=== PATIENT | male | born 1990 | race African-American/Black ===

== ENCOUNTER 2019-04-15 15:08 | Inpatient (IN) | payer OTHER ==
--- NOTE | 2019-04-15 15:53 | PDOC ---
History of Present Illness - General Chief Complaint: Abnormal Lab Results (Outside) Stated Complaint: PAIN History Source: Patient Exam Limitations: No Limitations - History of Present Illness Initial Comments: 29 yo M with a hx of HTN presents to the emergency department with abnormal lab values. Per the patient, he was in a hospital located in [facility] where he was admitted to the ICU for rhabdo with ARF requiring HD. Per the patient, he states he had URI symptoms in January with subsequent development of global weakness. He subsequently developed rhabdo and was admitted to the ICU with ARF with HD. The patient was discharged to rehab at [facility] and was discharged within the past 3-4 weeks. The patient over the course of 3 days developed acute on chronic global weakness with difficulty ambulating (using a cane to ambulate since rehabilitation discharge). The patient denies pain. Denies substance abuse. He was prescribed 20 mg of prednisone but is not taking it. Past History - Past Medical History Allergies/Adverse Reactions: Allergies Allergy/AdvReac Type Severity Reaction Status Date / Time No Known Allergies Allergy Verified 04/15/19 16:16 Home Medications: Ambulatory Orders Acetaminophen [Acetaminophen ER] 650 mg PO DAILY 04/15/19 Famotidine 20 mg PO DAILY 04/15/19 Hydrocodone/Acetaminophen [Hydrocodon-Acetaminophn 10-325] 1 each PO Q6H Magnesium Oxide 400 mg PO DAILY 04/15/19 Nifedipine [Nifedipine ER] 90 mg PO DAILY 04/15/19 Potassium Chloride [Klor-Con M20] 20 meq PO DAILY 04/15/19 Vitamin B Complex 1 each PO DAILY 04/15/19 predniSONE [Deltasone -] 20 mg PO DAILY 04/15/19 - Psycho Social/Smoking Cessation Hx Smoking History: Never smoked Hx Alcohol Use: No Drug/Substance Use Hx: No Review of Systems - Review of Systems Able to Perform ROS?: Yes Is the patient limited Portuguese proficient: No Constitutional: Yes: Weakness. No: Chills, Diaphoresis, Fever HEENTM: No: Eye Pain, Ear Pain, Nose Pain, Throat Pain, Mouth Pain Respiratory: No: Cough, Shortness of Breath, Hemoptysis Cardiac (ROS): No: Chest Pain, Lightheadedness, Palpitations, Chest Tightness ABD/GI: No: Constipated, Diarrhea, Nausea, Rectal Bleeding, Vomiting, Tarry Stools : No: Burning, Dysuria, Hematuria Musculoskeletal: Yes: Muscle Weakness. No: Back Pain, Joint Pain, Muscle Pain, Neck Pain Integumentary: No: Bruising, Erythema, Rash Neurological: Yes: Unsteady Gait. No: Headache, Numbness, Tremors Psychiatric: No: Change in Appetite Endocrine: No: Unexplained Weight Loss Hematologic/Lymphatic: No: Anemia *Physical Exam - Vital Signs Last Vital Signs Temp Pulse Resp BP Pulse Ox 98.3 F 79 16 120/64 100 04/15/19 15:12 04/15/19 15:12 04/15/19 15:12 04/15/19 15:12 04/15/19 15:12 - Physical Exam General Appearance: Yes: Nourished, Appropriately Dressed. No: Apparent Distress, Intoxicated, Thin HEENT: positive: EOMI, ANA LAURA, Normal Voice, Symmetrical, Pharynx Normal, Hearing Grossly Normal. negative: Pale Conjunctivae, Scleral Icterus (R), Scleral Icterus (L), Muffled/Hoarse voice, Pharyngeal Erythema, Tonsillar Exudate, Tonsillar Erythema, Nasal Congestion, Rhinorrhea, Sinus Tenderness, Excessive drooling Neck: positive: Trachea midline, Supple. negative: Tender, Lymphadenopathy (R) , Lymphadenopathy (L), Tender lateral, Tender midline Respiratory/Chest: positive: Lungs Clear, Normal Breath Sounds. negative: Chest Tender, Respiratory Distress, Accessory Muscle Use Cardiovascular: positive: Regular Rhythm, Regular Rate, S1, S2. negative: Systolic Murmur Gastrointestinal/Abdominal: positive: Normal Bowel Sounds, Flat, Soft. negative : Tender Lymphatic: negative: Adenopathy Musculoskeletal: positive: Normal Inspection. negative: CVA Tenderness, Vertebral Tenderness Extremity: positive: Normal Capillary Refill, Normal Inspection, Normal Range of Motion. 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 able to walk in tandem). negative: Motor Strength 5/5 (4/5 strength b/l for UE and LE), EOM Palsy, Facial Droop, Numbness, Sensory Deficit , Confused, Disoriented Deep Tendon Reflexes: Knee (L): 4+, Knee (R): 4+, Bicep (L): 3+, Bicep (R): 3+, Tricep (L): 2+, Tricep (R): 2+ ED Treatment Course - LABORATORY CBC & Chemistry Diagram: 04/16/19 10:10 04/16/19 10:10 Medical Decision Making - Medical Decision Making 29 yo M with a hx of HTN presents to the emergency department with abnormal lab values. Initial vitals: Initial Vital Signs Temp Pulse Resp BP Pulse Ox 98.3 F 79 16 120/64 100 04/15/19 15:12 04/15/19 15:12 04/15/19 15:12 04/15/19 15:12 04/15/19 15:12 Work up: ddx: patient presents to the emergency department with muscle weakness and recent ICU admission for rhabdo requiring dialysis with rehabilitation. The patient was at [facility] in [place]. He was sent in by his PMD, Edward Zhang for elevated CK enzymes. The patient denies recent travels or recent new exercises from baseline. Endorses only working out at his usual levels. He was prescribed prednisone 20 mg for unknown reasons to the patient and the patient is not taking them. The patient was, per the patient, to receive a muscle biopsy but did not receive one. Will repeat CK levels. Laboratory Tests 04/15/19 04/15/19 04/15/19 15:54 15:54 15:54 WBC 4.7 RBC 4.09 Hgb 11.9 Hct 36.2 MCV 88.5 MCH 29.1 MCHC 32.9 RDW 13.1 Plt Count 271 MPV 9.3 Absolute Neuts (auto) 2.5 Neutrophils % 53.6 Lymphocytes % 33.5 Monocytes % 10.3 H Eosinophils % 1.9 Basophils % 0.7 Nucleated RBC % 0 Sodium 139 Potassium 4.6 Chloride 105 Carbon Dioxide 28 Anion Gap 6 L BUN 7.9 Creatinine 0.9 Est GFR (CKD-EPI)AfAm 134.24 Est GFR (CKD-EPI)NonAf 115.82 Random Glucose 96 Calcium 9.7 Magnesium 2.0 Total Bilirubin 0.2 AST 23 ALT 33 Alkaline Phosphatase 64 Creatine Kinase 625 H Troponin I < 0.02 Total Protein 7.6 Albumin 4.1 Urine Color Urine Appearance Urine pH Ur Specific [place] Urine Protein Urine Glucose (UA) Urine Ketones Urine Blood Urine Nitrite Urine Bilirubin Urine Urobilinogen Ur Leukocyte Esterase Urine WBC (Auto) Urine RBC (Auto) Urine Casts (Auto) U Epithel Cells (Auto) Urine Bacteria (Auto) 04/15/19 16:15 WBC RBC Hgb Hct MCV MCH MCHC RDW Plt Count MPV Absolute Neuts (auto) Neutrophils % Lymphocytes % Monocytes % Eosinophils % Basophils % Nucleated RBC % Sodium Potassium Chloride Carbon Dioxide Anion Gap BUN Creatinine Est GFR (CKD-EPI)AfAm Est GFR (CKD-EPI)NonAf Random Glucose Calcium Magnesium Total Bilirubin AST ALT Alkaline Phosphatase Creatine Kinase Troponin I Total Protein Albumin Urine Color Dk yellow Urine Appearance Clear Urine pH 5.0 Ur Specific [place] 1.024 Urine Protein 1+ H Urine Glucose (UA) Negative Urine Ketones Negative Urine Blood Negative Urine Nitrite Negative Urine Bilirubin Negative Urine Urobilinogen 1.0 Ur Leukocyte Esterase Negative Urine WBC (Auto) 3 Urine RBC (Auto) 3 Urine Casts (Auto) 19 U Epithel Cells (Auto) 2.1 Urine Bacteria (Auto) 1.9 CK is 625. Neurology was stat paged to Dr. Lujan's service at 5:44 pm. The patient has hyperreflexia with non sustained clonus of the LE with inability to walk on his toes. In addition, he has global 4/5 strength with increased muscle tone in the calf and triceps bilaterally. The patient has a negative babinski. These findings are concerning for spinal cord pathology vs intracranial pathologies. A call was placed to admitting service and was accepted for admission. the patient needs MRI to rule out transverse myelitis vs cauda equina vs conus medullaris. The trim technician was called. Per the trim technician, it was "impossible" to do a triple study of the spine with brain because he has numerous cases that are listed as stat from inpatient team. I relayed to the trim technician that this patient has concerning neurological findings with emergent need for studies. The tech continues to refuse because he will not be here long enough to do the studies. A call was placed to [facility]'s team for immediate consultation at 6 :03 pm. I spoke to Dr. Oneil from [facility] who stipulates that the patient may have a myopathy and will not require emergent MRI imaging and does not require emergent transfer. I relayed the conversation with the family and admitting team and the patient agrees to stay at [facility] for further evaluation. Patient was admitted for UMN findings in setting of recent rhabdo requiring HD. Discharge - Discharge Information Problems reviewed: Yes Clinical Impression/Diagnosis: Muscle weakness, Unsteady gait - Follow up/Referral - Patient Discharge Instructions - Post Discharge Activity
[2019-04-15 16:33] LABS: BASO % 0.7 % (0-2.0); EOS % 1.9 % (0-4.5); HEMATOCRIT 36.2 % (35.4-49); HEMOGLOBIN 11.9 GM/dL (11.7-16.9); LYMPH % 33.5 % (8-40); MCH 29.1 pg (25.7-33.7); MCHC 32.9 g/dl (32.0-35.9); MEAN CELL VOLUME 88.5 fl (80-96); MEAN PLT VOLUME 9.3 fl (7.5-11.1); MONO % 10.3 % (3.8-10.2); NEUT % 53.6 % (42.8-82.8); PLATELET COUNT 271 K/MM3 (134-434); RBC 4.09 M/mm3 (4.00-5.60); RDW 13.1 % (11.9-15.9); WHITE BLOOD COUNT 4.7 K/mm3 (4.0-10.0)
[2019-04-15 16:35] LABS: EPI CELLS 2.1 /HPF (0-5/HPF); HYALINE CASTS 19 /lpf (0-8); URINE APPEARANCE CLEAR; URINE BACTERIA 1.9 /hpf (NEGATIVE); URINE BILIRUBIN NEGATIVE (NEGATIVE); URINE COLOR DK YELLOW; URINE GLUCOSE (UA) NEGATIVE (NEGATIVE); URINE KETONE NEGATIVE (NEGATIVE); URINE LEUK ESTERASE NEGATIVE (NEGATIVE); URINE NITRITE NEGATIVE (NEGATIVE); URINE PROTEIN 1+ (NEGATIVE); URINE RBC 3 /hpf (0-4); URINE WBC 3 /hpf (0-5)
--- NOTE | 2019-04-15 16:40 | PDOC ---
Attending Attestation - Resident Resident Name: Lebron Malagon - ED Attending Attestation I have performed the following: I have examined & evaluated the patient, The case was reviewed & discussed with the resident, I agree w/resident's findings & plan
[2019-04-15 17:03] LABS: ALBUMIN 4.1 g/dl (3.4-5.0); ALK PHOS 64 U/L (45-117); ANION GAP 6 MMOL/L (8-16); BILIRUBIN,TOTAL 0.2 mg/dL (0.2-1); BLOOD UREA NITROGEN 7.9 mg/dL (7-18); CALCIUM 9.7 mg/dL (8.5-10.1); CHLORIDE 105 mmol/L (98-107); CO2 28 mmol/L (21-32); CREATININE 0.9 mg/dL (0.55-1.3); GLUCOSE,RANDOM 96 mg/dL (74-106); POTASSIUM 4.6 mmol/L (3.5-5.1); SGOT/AST 23 U/L (15-37); SGPT/ALT 33 U/L (13-61); SODIUM 139 mmol/L (136-145); TOT PROT 7.6 g/dl (6.4-8.2)
--- NOTE | 2019-04-15 17:45 | HP ---
CHIEF COMPLAINT: muscle weakness, sent by pcp for elevated cpk on routine labs PCP: HISTORY OF PRESENT ILLNESS: The patient is a 29 year old male with a past medical history significant for HTN (on three blood pressure medications), rhabdomylysis and renal failure requiring dialysis. Patient presents to the ED today with tingling to both hands, numbness, generalized body aches accompanied with generalized weakness with cramping and aching to both arms and legs. He also reports difficulty ambulating secondary to pain in feet and joints. He was reported to have an elevated CPK levels and was advised to go to the ED by this PCP. Patient was recently hospitalized on 01/26/2019 at [facility] in [place] where he was admitted to the ICU for rhabdo with ARF requiring HD secondary to influenza. He was hospitalized until March 18/2020 and during hospital stay required eight sessions of dialysis via right permacath. He was then discharged to rehab where he reported that he had difficulty with ambulating and required a cane. He had routine lab work done by his PCP an advised to come to the ED once his CPK levels were again elevated. Patient denies abdominal pain denies shortness of breath or visual loss, denies urinary frequency, hematuria, nausea/vomiting or diarrhea. Patient was discharged on Prednisone but states he does not know why he was discharged on predinosine but has stopped taking it. Last took it on March 18/2020. ER course was notable for: (1) cpk 625 (2) creatine kinase index 12.3, ck mk 77 (3) brain mri pending (4) bun within normal limits/creatinine within normal limits Recent Travel: PAST MEDICAL HISTORY: HTN (on three blood pressure medications), rhabdomylysis and renal failure requiring dialysis. PAST SURGICAL HISTORY: permacath Social History: Smoking: none Alcohol: none Drugs: none Allergies No Known Allergies Allergy (Verified 04/15/19 16:16) HOME MEDICATIONS: Home Medications Medication Instructions Recorded Acetaminophen [Acetaminophen ER] 650 mg PO DAILY 04/15/19 Famotidine 20 mg PO DAILY 04/15/19 Magnesium Oxide 400 mg PO DAILY 04/15/19 Nifedipine [Nifedipine ER] 90 mg PO DAILY 04/15/19 Potassium Chloride [Klor-Con M20] 20 meq PO DAILY 04/15/19 Vitamin B Complex 1 each PO DAILY 04/15/19 predniSONE [Deltasone -] 20 mg PO DAILY 04/15/19 REVIEW OF SYSTEMS CONSTITUTIONAL: Absent: fever, chills, diaphoresis, generalized weakness, malaise, loss of appetite, weight change HEENT: Absent: rhinorrhea, nasal congestion, throat pain, throat swelling, difficulty swallowing, mouth swelling, ear pain, eye pain, visual changes CARDIOVASCULAR: Absent: chest pain, syncope, palpitations, irregular heart rate, lightheadedness , peripheral edema RESPIRATORY: Absent: cough, shortness of breath, dyspnea with exertion, orthopnea, wheezing, stridor, hemoptysis GASTROINTESTINAL: Absent: abdominal pain, abdominal distension, nausea, vomiting, diarrhea, constipation, melena, hematochezia GENITOURINARY: Absent: dysuria, frequency, urgency, hesitancy, hematuria, flank pain, genital pain MUSCULOSKELETAL: Present: muscle weakness, upper arm, lower arms, knees and painful joints. SKIN: Absent: rash, itching, pallor HEMATOLOGIC/IMMUNOLOGIC: Absent: easy bleeding, easy bruising, lymphadenopathy, frequent infections ENDOCRINE: Absent: unexplained weight gain, unexplained weight loss, heat intolerance, cold intolerance NEUROLOGIC: Absent: headache, focal weakness or paresthesias, dizziness, PHYSICAL EXAMINATION Vital Signs - 24 hr 04/15/19 04/15/19 15:12 17:38 Temperature 98.3 F 98.0 F Pulse Rate 79 Pulse Rate [ 73 Apical] Respiratory 16 19 Rate Blood Pressure 120/64 Blood Pressure 125/67 [Right Arm] O2 Sat by Pulse 100 100 Oximetry (%) GENERAL: Awake, alert, and fully oriented, in no acute distress. HEAD: Normal with no signs of trauma. EYES: Pupils equal, round and reactive to light, extraocular movements intact, sclera anicteric, conjunctiva clear. No lid lag. EARS, NOSE, THROAT: Ears normal, nares patent, oropharynx clear without exudates. Moist mucous membranes. NECK: Normal range of motion, supple without lymphadenopathy, JVD, or masses. LUNGS: Breath sounds equal, clear to auscultation bilaterally. No wheezes, and no crackles. No accessory muscle use. HEART: Regular rate and rhythm, normal S1 and S2 without murmur, rub or gallop. ABDOMEN: Soft, nontender, not distended, normoactive bowel sounds, no guarding, no rebound, no masses. No hepatomegaly or splenomegaly. MUSCULOSKELETAL: muscle weakness of upper and lower arms, joint pain, difficulty ambulating secondary to ankle/knee pain. UPPER EXTREMITIES: No peripheral edema. LOWER EXTREMITIES: No peripheral edema. NEUROLOGICAL: Normal speech. ambulates with cane, unable to bear his weight fully on pads of feet. unable to walk on his toes, negative facial droop, patient is alert and oriented x 4. upper extremities strength 4/5, lower ext strength 4/5 PSYCHIATRIC: Cooperative. Good eye contact. Appropriate mood and affect. SKIN: Warm, dry, normal turgor, no rashes or lesions noted, normal capillary refill. Laboratory Results - last 24 hr 04/15/19 04/15/19 04/15/19 15:54 15:54 15:54 WBC 4.7 RBC 4.09 Hgb 11.9 Hct 36.2 MCV 88.5 MCH 29.1 MCHC 32.9 RDW 13.1 Plt Count 271 MPV 9.3 Absolute Neuts (auto) 2.5 Neutrophils % 53.6 Lymphocytes % 33.5 Monocytes % 10.3 H Eosinophils % 1.9 Basophils % 0.7 Nucleated RBC % 0 Sodium 139 Potassium 4.6 Chloride 105 Carbon Dioxide 28 Anion Gap 6 L BUN 7.9 Creatinine 0.9 Est GFR (CKD-EPI)AfAm 134.24 Est GFR (CKD-EPI)NonAf 115.82 Random Glucose 96 Calcium 9.7 Magnesium 2.0 Total Bilirubin 0.2 AST 23 ALT 33 Alkaline Phosphatase 64 Creatine Kinase 625 H Creatine Kinase Index 12.3 H CK-MB (CK-2) 77.0 H Troponin I < 0.02 Total Protein 7.6 Albumin 4.1 Urine Color Urine Appearance Urine pH Ur Specific [place] Urine Protein Urine Glucose (UA) Urine Ketones Urine Blood Urine Nitrite Urine Bilirubin Urine Urobilinogen Ur Leukocyte Esterase Urine WBC (Auto) Urine RBC (Auto) Urine Casts (Auto) U Epithel Cells (Auto) Urine Bacteria (Auto) 04/15/19 16:15 WBC RBC Hgb Hct MCV MCH MCHC RDW Plt Count MPV Absolute Neuts (auto) Neutrophils % Lymphocytes % Monocytes % Eosinophils % Basophils % Nucleated RBC % Sodium Potassium Chloride Carbon Dioxide Anion Gap BUN Creatinine Est GFR (CKD-EPI)AfAm Est GFR (CKD-EPI)NonAf Random Glucose Calcium Magnesium Total Bilirubin AST ALT Alkaline Phosphatase Creatine Kinase Creatine Kinase Index CK-MB (CK-2) Troponin I Total Protein Albumin Urine Color Dk yellow Urine Appearance Clear Urine pH 5.0 Ur Specific [place] 1.024 Urine Protein 1+ H Urine Glucose (UA) Negative Urine Ketones Negative Urine Blood Negative Urine Nitrite Negative Urine Bilirubin Negative Urine Urobilinogen 1.0 Ur Leukocyte Esterase Negative Urine WBC (Auto) 3 Urine RBC (Auto) 3 Urine Casts (Auto) 19 U Epithel Cells (Auto) 2.1 Urine Bacteria (Auto) 1.9 ASSESSMENT/PLAN: Problem List - Problem (1) Rhabdomyolysis Assessment/Plan: presents with cpk 625. had recent admission for rhabdomyolysis that required dialysis. on IVF 125/cc monitor daily cpk intake and output Code(s): M62.82 - RHABDOMYOLYSIS (2) Muscle weakness Assessment/Plan: unclear etiology of muscle weakness, was seen by a silk examiner on last hospital admission, but not muscle biopsy performed. patient states he continues to feel weak since discharge from rehab. reports generalized body pain/weakness. denies any falls ambulates with RW Code(s): M62.81 - MUSCLE WEAKNESS (GENERALIZED) (3) Hypertension Assessment/Plan: stable. continue home medications. Code(s): I10 - ESSENTIAL (PRIMARY) HYPERTENSION (4) History of renal failure Assessment/Plan: s.p 8 sessions of dialysis via right permacath. renal function stable renal consulted Code(s): Z87.448 - PERSONAL HISTORY OF OTHER DISEASES OF URINARY SYSTEM (5) Unsteady gait Assessment/Plan: negative head ct brain mri pending mri of cervical, lumbar, thoracic ordered Code(s): R26.81 - UNSTEADINESS ON FEET Visit type - Emergency Visit Emergency Visit: Yes ED Registration Date: 04/15/19 Care time: The patient presented to the Emergency Department on the above date and was hospitalized for further evaluation of their emergent condition. - New Patient This patient is new to me today: Yes Date on this admission: 04/16/19 - Critical Care Critical Care patient: No
[2019-04-15] MEDS: SODIUM CHLORIDE 1,000 ML IV SCH (18:30)
--- NOTE | 2019-04-15 19:18 | PDOC ---
Documentation entered by Dulce Whitmore SCRIBE, acting as scribe for Minerva Andrade DO. Minerva Andrade DO: This documentation has been prepared by the janelle, Dulce Whitmore SCRIBE, under my direction and personally reviewed by me in its entirety. I confirm that the documentation accurately reflects all work , treatment, procedures, and medical decision making performed by me. Attending Attestation - Resident Resident Name: VensaLebron - ED Attending Attestation I have performed the following: I have examined & evaluated the patient, The case was reviewed & discussed with the resident, I agree w/resident's findings & plan - HPI HPI: 04/15/19 17:38 The patient is a 29-year-old male with a past medical history significant for HTN who presents to the emergency department with tingling, weakness and aches. The patient is status post eight weeks admission at a facility in [place] for rhabdomyolysis, presents today with tingling to the hands, subjective generalized weakness, cramping and aching to the arms and legs. Allergies: NKA PCP: Dr. Donato Zhang - Physicial Exam PE: 04/15/19 17:46 Agree with the resident - Critical Care Time Total Critical Care Time: 60 Critical Care Statement: The care of this patient involved high complexity decision making to prevent further life threatening deterioration of the patient 's condition and/or to evaluate & treat vital organ system(s) failure or risk of failure. - Medical Decision Making 04/15/19 19:14 29-year-old male with muscle weakness, post viral Renal function within normal limits, CPK is mildly elevated Neuro exam shows abnormal reflexes as well as mild extremity weakness Case discussed with in-house neurology, Dr. Lujan well as Dr. Oneil at [facility], both recommend admission though neither state emergent MRI is necessary, MRI of the brain cervical thoracic and lumbar spine is ordered for the morning Further evaluation including possibility of lumbar puncture to be discussed as well This was conveyed to the family, patient admitted for further evaluation
[2019-04-15 21:26] LABS: CHOLESTEROL 214 mg/dL (50-200); HDL CHOLESTEROL 51 mg/dL (40-60); LDL CHOLESTEROL (ONLY SJRH) 128 mg/dL (5-100); TRIGLYCERIDES 164 mg/dL (0-150)
[2019-04-15] MEDS: LABETALOL HCL 100 MG TABLET (FP) PO SCH (22:20)
[2019-04-15 22:34] VITALS: BMI 38.0
[2019-04-16] MEDS: oxyCODONE HCL 5 MG TABLET PO PRN ×2 (00:22→07:04)
[2019-04-16] MEDS: SODIUM CHLORIDE 1,000 ML IV SCH (07:04)
[2019-04-16] MEDS ORDERED: ACETAMINOPHEN 325 MG TABLET (FP) PO PRN (09:13)
[2019-04-16] MEDS ORDERED: oxyCODONE HCL 5 MG TABLET PO PRN (09:14)
[2019-04-16] MEDS: NIFEdipine E.R. 90 MG TABLET PO SCH (10:05)
[2019-04-16] MEDS: LABETALOL HCL 100 MG TABLET (FP) PO SCH ×2 (10:05→21:43)
[2019-04-16] MEDS: FAMOTIDINE 20 MG TABLET PO SCH (10:05)
[2019-04-16 10:49] LABS: HEMATOCRIT 36.3 % (35.4-49); HEMOGLOBIN 11.9 GM/dL (11.7-16.9); MCH 29.1 pg (25.7-33.7); MCHC 32.8 g/dl (32.0-35.9); MEAN CELL VOLUME 88.5 fl (80-96); MEAN PLT VOLUME 9.2 fl (7.5-11.1); PLATELET COUNT 247 K/MM3 (134-434); RDW 13.1 % (11.9-15.9); WHITE BLOOD COUNT 4.3 K/mm3 (4.0-10.0)
[2019-04-16 10:59] LABS: INR 1.02 (0.83-1.09)
[2019-04-16 11:28] LABS: ALBUMIN 3.8 g/dl (3.4-5.0); BILIRUBIN,TOTAL 0.3 mg/dL (0.2-1); BLOOD UREA NITROGEN 8.2 mg/dL (7-18); CALCIUM 9.4 mg/dL (8.5-10.1); CREATININE 0.8 mg/dL (0.55-1.3); MAGNESIUM 1.9 mg/dL (1.8-2.4); PHOSPHOROUS 4.1 mg/dL (2.5-4.9); POTASSIUM 4.3 mmol/L (3.5-5.1); TOT PROT 6.9 g/dl (6.4-8.2)
--- NOTE | 2019-04-16 13:34 | CONSULT ---
Consult Consult Specialty:: Rheumatology - History of Present Illness History of Present Illness: 29 year old male with a past medical history significant for HTN, and recent episode of rhabdomyolysis complicated with renal failure, admitted with progression of muscle weakness. HPI. The patient was admitted to Hospital in [place] on 02/05/19 with a 1 week history of flu like symptoms (nasal congestion, chills) and progressive muscle weakness with difficulty in climbing stairs and lifting objects. The weakness was rapidly progressive to the point he had difficulty in getting out of bed and noticed that the urine had a dark color. He required hemodialysis, apparently was treated conservatively and muscle strength improved only partially. On 03/18/19 he was transferred to a rehab facility,and continued to improve. In the last 4 days he noticed progression of muscle weakness and numbness in forearms. He has significant difficulty in climbing stairs or lifting objects. He indicates he had had dry mouth and had mild skin rash in forearms that resolved spontaneously. He denies other skin rash, dry eyes, shortness of breath, chest pain, abdominal pain, oral ulcers or fever. Laboratory work-up revealed on 04/15 CK of 625 and on 04/16: 515. creatinine 0.9 and LFT normal. Urinalysis woith protein 1+ and no blood. - History Source History Provided By: Patient, Medical Record - Alcohol/Substance Use Hx Alcohol Use: No - Smoking History Smoking history: Never smoked Have you smoked in the past 12 months: No Home Medications - Allergies Allergies/Adverse Reactions: Allergies Allergy/AdvReac Type Severity Reaction Status Date / Time No Known Allergies Allergy Verified 04/15/19 16:16 - Home Medications Home Medications: Ambulatory Orders Acetaminophen [Acetaminophen ER] 650 mg PO DAILY 04/15/19 Famotidine 20 mg PO DAILY 04/15/19 Hydrocodone/Acetaminophen [Hydrocodon-Acetaminophn 10-325] 1 each PO Q6H Magnesium Oxide 400 mg PO DAILY 04/15/19 Nifedipine [Nifedipine ER] 90 mg PO DAILY 04/15/19 Potassium Chloride [Klor-Con M20] 20 meq PO DAILY 04/15/19 Vitamin B Complex 1 each PO DAILY 04/15/19 predniSONE [Deltasone -] 20 mg PO DAILY 04/15/19 Review of Systems - Review of Systems Constitutional: reports: Malaise Eyes: reports: No Symptoms HENT: reports: No Symptoms Neck: reports: No Symptoms Cardiovascular: reports: No Symptoms Respiratory: reports: No Symptoms Gastrointestinal: reports: No Symptoms Musculoskeletal: reports: Other (See HPI) Physical Exam Vital Signs: Vital Signs Temperature 97.9 F 04/16/19 08:00 Pulse Rate 79 04/16/19 08:00 Respiratory Rate 18 04/16/19 08:00 Blood Pressure 145/80 04/16/19 08:00 O2 Sat by Pulse Oximetry (%) 100 04/16/19 09:00 Constitutional: Yes: No Distress Eyes: Yes: WNL HENT: Yes: WNL Neck: Yes: WNL Cardiovascular: Yes: WNL Respiratory: Yes: Ruperto-Pedraza Gastrointestinal: Yes: WNL Musculoskeletal: Yes: Other (Proximal muscle weakness 4/5 in upper and lower limbs. No active joints.) Labs: CBC, BMP 04/16/19 10:10 04/16/19 10:10 Problem List - Problems (1) Rhabdomyolysis Assessment/Plan: Probable rhabdomyolysis, possibly triggered by viral infection, however etiology of not clear. Recent moderate relapse. Rule out inflammatory myositis or other etiology. Plan: Dr. Reyes consult for MG> Conservative treatment. Code(s): M62.82 - RHABDOMYOLYSIS
--- NOTE | 2019-04-16 17:39 | CON.NEP ---
Consult Consult Specialty:: nephrology Referred by:: silas Reason for Consultation:: h/o renal failure, elev cpk - History of Present Illness Chief Complaint: weakness History of Present Illness: h/o rhabdomyolysis in january 2019 hosp [place]/p sima treated with hemodialysis renal function recovered he was in rehab after hosp now he was referred to ER by his pmd after blood tests showed abnromal levels of cpk - Alcohol/Substance Use Hx Alcohol Use: No - Smoking History Smoking history: Never smoked Have you smoked in the past 12 months: No Home Medications - Allergies Allergies/Adverse Reactions: Allergies Allergy/AdvReac Type Severity Reaction Status Date / Time No Known Allergies Allergy Verified 04/15/19 16:16 - Home Medications Home Medications: Ambulatory Orders Acetaminophen [Acetaminophen ER] 650 mg PO DAILY 04/15/19 Famotidine 20 mg PO DAILY 04/15/19 Hydrocodone/Acetaminophen [Hydrocodon-Acetaminophn 10-325] 1 each PO Q6H Magnesium Oxide 400 mg PO DAILY 04/15/19 Nifedipine [Nifedipine ER] 90 mg PO DAILY 04/15/19 Potassium Chloride [Klor-Con M20] 20 meq PO DAILY 04/15/19 Vitamin B Complex 1 each PO DAILY 04/15/19 predniSONE [Deltasone -] 20 mg PO DAILY 04/15/19 Nephrology Consult - Height Height: 5 ft 8 in - Weight Weight: 250 lb 1.6 oz - BMI Body Mass Index (BMI): 38.0 - Lab Results CBC,BMP: CBC, BMP 04/16/19 10:10 04/16/19 10:10 Anion Gap: Anion Gap Anion Gap 7 MMOL/L (8-16) L 04/16/19 10:10 - Physical Examination Vital Signs: Vital Signs Temperature 97.8 F 04/16/19 14:00 Pulse Rate 78 04/16/19 14:00 Respiratory Rate 18 04/16/19 14:00 Blood Pressure 131/94 04/16/19 14:00 O2 Sat by Pulse Oximetry (%) 100 04/16/19 09:00 Constitutional: Yes: Obese Eyes: Yes: WNL, Conjunctiva Clear, EOM Intact HENT: Yes: WNL, Atraumatic, Normocephalic Neck: Yes: WNL, Supple, Trachea Midline Cardiovascular: Yes: WNL, Regular Rate and Rhythm Respiratory: Yes: WNL, Regular, CTA Bilaterally Gastrointestinal: Yes: WNL, Normal Bowel Sounds Renal/: Yes: WNL Musculoskeletal: Yes: WNL, Muscle Pain, Muscle Weakness Extremities: Yes: WNL Edema: No Peripheral Pulses WNL: Yes Integumentary: Yes: WNL Neurological: Yes: WNL, Alert, Oriented Psychiatric: Yes: WNL, Alert, Oriented Assessment/Plan h/o sima treated with dialysis returnsd with muscle weakness and elev cpk renal function normal but has proteinuria unclear cause but concentrated urine specimen (sg 1.024) may be responsible for positive reaction Underlying HTN Plan- follow u/a urinary protein quantitation
--- NOTE | 2019-04-16 18:43 | CONSULT ---
Consult - text type - Consultation Consultation Note: NEUROLOGY CONSULTATION is greatly appreciated: Events reviewed, Patient examined. This 29 yo RH man lives with his mother or girlfriend. Active and athletic his whole life. 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 On 02/05 he developed "the flu" with fevers, chills and myalgias. Within a few days he developed muscle aching, swelling, stiffness and weakness. His girlfriend had to "carry him down the stairs" and take him to [facility] in [place] where he noted "coca-cola" colored urine and was told his CK was greater than 40,000 IU/L. He was hospitalized x 3 weeks and required "7 or 8" session of HD via right subclavian catheter "before his kidneys got better." He was told he had "Infectious Rhabdomyalysis from the flu." He did notd receive a flu shot this year. He went to "Rehab" in [place] which was "a waste of time" and then returned to his mother's house. He has complained of continued weakness and fatigue but denies specific disability. He can walk, climb, etc. No urine discoloration, cramps, etc. Wednesday he went to a local MD in the [place] and had Blood work. Yesterday the doctor called him and told him to go to the ED because of elevated CK-MB. He did because "he was concerned about the enzyme and protein in the blood." Today he has no specific complaints but "wants a note for disability." Now CK in 500-600 IU range. Creatinine =0.9 mg% ADRIANNA: Normal NEUROLOGICAL EXAM: Normal including both formal muscle and functional muscle testing. Normal reflexes and sensation. IMP: Normal exam. No evidence of ongoing or active myopathy Recent Rhabdomyalysis secondary to influenza. Continues to improve. Suggest: Stable for discharge Neuro f/u as out patient for repeat CK and EMG/NCS to exclude underlying myopathy. Encourage patient to gradually increase activity and exercise for reconditioning. Thank you very much, Jethro Lujan MD
--- NOTE | 2019-04-16 18:53 | PN ---
Physical Exam: SUBJECTIVE: Patient seen and examined OBJECTIVE: The patient is a 29 year old male with a past medical history significant for HTN (on three blood pressure medications), rhabdomylysis and renal failure requiring dialysis. Patient presents to the ED on 04/15/19 with tingling to both hands, numbness, generalized body aches accompanied with generalized weakness with cramping and aching to both arms and legs. He also reports difficulty ambulating secondary to pain in feet and joints. He was reported to have an elevated CPK levels and was advised to go to the ED by this PCP. Vital Signs Period Temp Pulse Resp BP Sys/Schuster Pulse Ox Last 24 Hr 97.8 F-98.1 F 62-79 18-18 127-145/75-94 98-100 GENERAL: Awake, alert, and fully oriented, in no acute distress. HEAD: Normal with no signs of trauma. EYES: Pupils equal, round and reactive to light, extraocular movements intact, sclera anicteric, conjunctiva clear. No lid lag. EARS, NOSE, THROAT: Ears normal, nares patent, oropharynx clear without exudates. Moist mucous membranes. NECK: Normal range of motion, supple without lymphadenopathy, JVD, or masses. LUNGS: Breath sounds equal, clear to auscultation bilaterally. No wheezes, and no crackles. No accessory muscle use. HEART: Regular rate and rhythm, normal S1 and S2 without murmur, rub or gallop. ABDOMEN: Soft, nontender, not distended, normoactive bowel sounds, no guarding, no rebound, no masses. No hepatomegaly or splenomegaly. MUSCULOSKELETAL: muscle weakness of upper and lower arms, joint pain, difficulty ambulating secondary to ankle/knee pain. UPPER EXTREMITIES: No peripheral edema. LOWER EXTREMITIES: No peripheral edema. NEUROLOGICAL: Normal speech. ambulates with cane, unable to bear his weight fully on pads of feet. unable to walk on his toes, negative facial droop, patient is alert and oriented x 4. upper extremities strength 4/5, lower ext strength 4/5 Laboratory Results - last 24 hr 04/15/19 04/15/19 04/16/19 16:21 20:40 10:10 WBC 4.3 RBC 4.10 Hgb 11.9 Hct 36.3 MCV 88.5 MCH 29.1 MCHC 32.8 RDW 13.1 Plt Count 247 MPV 9.2 PT with INR INR Sodium Potassium Chloride Carbon Dioxide Anion Gap BUN Creatinine Est GFR (CKD-EPI)AfAm Est GFR (CKD-EPI)NonAf Random Glucose Hemoglobin A1c % 3.9 L Calcium Phosphorus Magnesium Total Bilirubin AST ALT Alkaline Phosphatase Creatine Kinase Creatine Kinase Index CK-MB (CK-2) Total Protein Albumin Triglycerides 164 H Cholesterol 214 H Total LDL Cholesterol 128 H HDL Cholesterol 51 TSH 04/16/19 04/16/19 10:10 10:10 WBC RBC Hgb Hct MCV MCH MCHC RDW Plt Count MPV PT with INR 12.00 INR 1.02 Sodium 140 Potassium 4.3 Chloride 107 Carbon Dioxide 26 Anion Gap 7 L BUN 8.2 Creatinine 0.8 Est GFR (CKD-EPI)AfAm 140.90 Est GFR (CKD-EPI)NonAf 121.57 Random Glucose 99 Hemoglobin A1c % Calcium 9.4 Phosphorus 4.1 Magnesium 1.9 Total Bilirubin 0.3 AST 16 ALT 27 Alkaline Phosphatase 57 Creatine Kinase 515 H Creatine Kinase Index 11.6 H CK-MB (CK-2) 59.8 H Total Protein 6.9 Albumin 3.8 Triglycerides Cholesterol Total LDL Cholesterol HDL Cholesterol TSH 0.95 Active Medications Generic Name Dose Route Start Last Admin Trade Name Freq PRN Reason Stop Dose Admin Acetaminophen 650 mg 04/16/19 09:13 04/16/19 13:06 Tylenol - PO 650 mg Q4H PRN Administration PAIN LEVEL 4 - 6 Famotidine 20 mg 04/16/19 10:00 04/16/19 10:05 Pepcid - PO Not Given DAILY KRYSTA Labetalol HCl 100 mg 04/15/19 22:00 04/16/19 10:05 Normodyne - PO 100 mg BID KRYSTA Administration Nifedipine 90 mg 04/16/19 10:00 04/16/19 10:05 Procardia Xl - PO 90 mg DAILY KRYSTA Administration ASSESSMENT/PLAN: Problem List - Problems (1) History of renal failure Assessment/Plan: s.p 8 sessions of dialysis via right permacath. renal function stable renal consulted for further recommendations will need outpatient follow up Code(s): Z87.448 - PERSONAL HISTORY OF OTHER DISEASES OF URINARY SYSTEM (2) Hypertension Assessment/Plan: stable. continue home medications. Code(s): I10 - ESSENTIAL (PRIMARY) HYPERTENSION (3) Muscle weakness Assessment/Plan: unclear etiology of muscle weakness, was seen by a art glass designer on last hospital admission, but not muscle biopsy performed. patient states he continues to feel weak since discharge from rehab. reports generalized body pain/weakness. denies any falls ambulates with RW Code(s): M62.81 - MUSCLE WEAKNESS (GENERALIZED) (4) Rhabdomyolysis Assessment/Plan: presents with cpk 625. had recent admission for rhabdomyolysis that required dialysis. on IVF 125/cc monitor daily cpk intake and output Code(s): M62.82 - RHABDOMYOLYSIS (5) Unsteady gait Assessment/Plan: negative head ct seen by neuro and EMG recommended, can be done as an outpatient MRI of brain, cervical, lumbar and thoracic canceled by neurology Code(s): R26.81 - UNSTEADINESS ON FEET Visit type - Emergency Visit Emergency Visit: Yes ED Registration Date: 04/15/19 Care time: The patient presented to the Emergency Department on the above date and was hospitalized for further evaluation of their emergent condition. - New Patient This patient is new to me today: No - Critical Care Critical Care patient: No - Discharge Referral Referred to [facility] Med P.C.: No
[2019-04-17] MEDS: LABETALOL HCL 100 MG TABLET (FP) PO SCH ×2 (09:51→21:20)
--- NOTE | 2019-04-17 09:51 | EKG ---
Test Reason : Blood Pressure : / mmHG Vent. Rate : 065 BPM Atrial Rate : 065 BPM P-R Int : 172 ms QRS Dur : 100 ms QT Int : 390 ms P-R-T Axes : 070 044 038 degrees QTc Int : 405 ms SINUS RHYTHM WITH MARKED SINUS ARRHYTHMIA EARLY REPOLARIZATION OTHERWISE NORMAL ECG NO PREVIOUS ECGS AVAILABLE Confirmed by Abel Crowe ([id number]) on 04/17/2019 9:51:31 AM Referred By: Confirmed By:Abel Crowe
[2019-04-17] MEDS: NIFEdipine E.R. 90 MG TABLET PO SCH (09:52)
[2019-04-17] MEDS: FAMOTIDINE 20 MG TABLET PO SCH (09:52)
[2019-04-17 14:00] LABS: BASO % 0.7 % (0-2.0); EOS % 1.8 % (0-4.5); HEMATOCRIT 36.6 % (35.4-49); LYMPH % 28.7 % (8-40); MCH 28.8 pg (25.7-33.7); MCHC 32.9 g/dl (32.0-35.9); MEAN CELL VOLUME 87.7 fl (80-96); MONO % 10.8 % (3.8-10.2); PLATELET COUNT 249 K/MM3 (134-434); RBC 4.18 M/mm3 (4.00-5.60); RDW 12.9 % (11.9-15.9); WHITE BLOOD COUNT 5.1 K/mm3 (4.0-10.0)
[2019-04-17 14:34] LABS: ALBUMIN 3.8 g/dl (3.4-5.0); BILIRUBIN,TOTAL 0.3 mg/dL (0.2-1); BLOOD UREA NITROGEN 5.2 mg/dL (7-18); CALCIUM 9.8 mg/dL (8.5-10.1); CREATININE 0.8 mg/dL (0.55-1.3); MAGNESIUM 1.6 mg/dL (1.8-2.4); POTASSIUM 4.2 mmol/L (3.5-5.1); TOT PROT 7.3 g/dl (6.4-8.2)
[2019-04-17] MEDS ORDERED: MAGNESIUM OXIDE 400 MG TABLET (FP) PO ONE (14:55)
--- NOTE | 2019-04-17 16:30 | PN ---
Progress Note, Physician History of Present Illness: Pt seen and examined at bedside. He is awake and alert. He denies shortness of breath. He still complains of weakness but he says that it is better. He did have RM that required 8 sessions of HD. - Current Medication List Current Medications: Active Medications Acetaminophen (Tylenol -) 650 mg PO Q4H PRN PRN Reason: PAIN LEVEL 4 - 6 Last Admin: 04/16/19 13:06 Dose: 650 mg Famotidine (Pepcid -) 20 mg PO DAILY [facility] Last Admin: 04/17/19 09:52 Dose: Not Given Labetalol HCl (Normodyne -) 100 mg PO BID [facility] Last Admin: 04/17/19 09:51 Dose: 100 mg Nifedipine (Procardia Xl -) 90 mg PO DAILY [facility] Last Admin: 04/17/19 09:52 Dose: 90 mg - Objective Vital Signs: Vital Signs Temperature 98.4 F 04/17/19 12:00 Pulse Rate 66 04/17/19 12:00 Respiratory Rate 18 04/17/19 12:00 Blood Pressure 144/80 04/17/19 12:00 O2 Sat by Pulse Oximetry (%) 100 04/17/19 09:00 Constitutional: Yes: Calm Eyes: Yes: Conjunctiva Clear HENT: Yes: Atraumatic Neck: Yes: Supple Cardiovascular: Yes: S1, S2 Respiratory: Yes: CTA Bilaterally Gastrointestinal: Yes: Soft, Abdomen, Obese Genitourinary: Yes: WNL Musculoskeletal: Yes: WNL Edema: No Neurological: Yes: Oriented Psychiatric: Yes: Oriented Labs: CBC, BMP 04/17/19 13:36 04/17/19 13:40 INR, PTT INR 1.02 (0.83-1.09) 04/16/19 10:10 Problem List - Problems (1) History of renal failure Code(s): Z87.448 - PERSONAL HISTORY OF OTHER DISEASES OF URINARY SYSTEM (2) Hypertension Code(s): I10 - ESSENTIAL (PRIMARY) HYPERTENSION (3) Rhabdomyolysis Code(s): M62.82 - RHABDOMYOLYSIS Assessment/Plan Current Medications Generic Name Dose Route Start Last Admin Trade Name Freq PRN Reason Stop Dose Admin Acetaminophen 650 mg 04/16/19 09:13 04/16/19 13:06 Tylenol - PO 650 mg Q4H PRN Administration PAIN LEVEL 4 - 6 Famotidine 20 mg 02/23/20 10:00 04/17/19 09:52 Pepcid - PO Not Given DAILY KRYSTA Labetalol HCl 100 mg 04/15/19 22:00 04/17/19 09:51 Normodyne - PO 100 mg BID KRYSTA Administration Nifedipine 90 mg 04/16/19 10:00 04/17/19 09:52 Procardia Xl - PO 90 mg DAILY KRYSTA Administration Impression 1. rhabdo 2. ckd 3. htn 4. weakness Plan - renal function stable - will need outpt follow up as he does have proteinuria - rheum follow up - neuro input appreciated
--- NOTE | 2019-04-17 18:47 | PN ---
Physical Exam: SUBJECTIVE: Patient seen and examined. no acute overnight events. denies any malaise. OBJECTIVE: The patient is a 29 year old male with a past medical history significant for HTN (on three blood pressure medications), rhabdomylysis and renal failure requiring dialysis. Patient presents to the ED on 04/15/19 with tingling to both hands, numbness, generalized body aches accompanied with generalized weakness with cramping and aching to both arms and legs. He also reports difficulty ambulating secondary to pain in feet and joints. He was reported to have an elevated CPK levels and was advised to go to the ED by this PCP. Unable to discharge patient as his cpk levels have not been drawn with a.m labs and subs. stat cpk levels not yet drawn. patient agrees to follow up on discharge for an EMG and with nephrology Vital Signs Period Temp Pulse Resp BP Sys/Schuster Pulse Ox Last 24 Hr 98.0 F-98.8 F 66-80 18-18 134-144/71-89 100-100 GENERAL: Awake, alert, and fully oriented, in no acute distress. HEAD: Normal with no signs of trauma. EYES: Pupils equal, round and reactive to light, extraocular movements intact, sclera anicteric, conjunctiva clear. No lid lag. EARS, NOSE, THROAT: Ears normal, nares patent, oropharynx clear without exudates. Moist mucous membranes. NECK: Normal range of motion, supple without lymphadenopathy, JVD, or masses. LUNGS: Breath sounds equal, clear to auscultation bilaterally. No wheezes, and no crackles. No accessory muscle use. HEART: Regular rate and rhythm, normal S1 and S2 without murmur, rub or gallop. ABDOMEN: Soft, nontender, not distended, normoactive bowel sounds, no guarding, no rebound, no masses. No hepatomegaly or splenomegaly. MUSCULOSKELETAL: muscle weakness of upper and lower arms, joint pain, difficulty ambulating secondary to ankle/knee pain. UPPER EXTREMITIES: No peripheral edema. LOWER EXTREMITIES: No peripheral edema. NEUROLOGICAL: Normal speech. ambulates with cane, unable to bear his weight fully on pads of feet. unable to walk on his toes, negative facial droop, patient is alert and oriented x 4. upper extremities strength 4/5, lower ext strength 4/5 Laboratory Results - last 24 hr 04/16/19 04/17/1904/17/20 10:10 13:36 13:40 WBC 5.1 RBC 4.18 Hgb 12.0 Hct 36.6 MCV 87.7 MCH 28.8 MCHC 32.9 RDW 12.9 Plt Count 249 MPV 9.0 Absolute Neuts (auto) 3.0 Neutrophils % 58.0 Lymphocytes % 28.7 Monocytes % 10.8 H Eosinophils % 1.8 Basophils % 0.7 Nucleated RBC % 0 Sodium 139 Potassium 4.2 Chloride 104 Carbon Dioxide 27 Anion Gap 8 BUN 5.2 L Creatinine 0.8 Est GFR (CKD-EPI)AfAm 140.90 Est GFR (CKD-EPI)NonAf 121.57 Random Glucose 104 Calcium 9.8 Magnesium 1.6 L Total Bilirubin 0.3 AST 16 ALT 29 Alkaline Phosphatase 59 Total Protein 7.3 Albumin 3.8 Ur Random Creatinine U Random Total Protein Urine Creatinine Protein/Creatinin Ratio JASWINDER Screen Negative 04/17/19 04/17/19 04/17/19 14:30 14:30 14:30 WBC RBC Hgb Hct MCV MCH MCHC RDW Plt Count MPV Absolute Neuts (auto) Neutrophils % Lymphocytes % Monocytes % Eosinophils % Basophils % Nucleated RBC % Sodium Potassium Chloride Carbon Dioxide Anion Gap BUN Creatinine Est GFR (CKD-EPI)AfAm Est GFR (CKD-EPI)NonAf Random Glucose Calcium Magnesium Total Bilirubin AST ALT Alkaline Phosphatase Total Protein Albumin Ur Random Creatinine 142.0 U Random Total Protein 24.0 H 25.3 H Urine Creatinine 140.0 Protein/Creatinin Ratio 0.2 JASWINDER Screen Active Medications Generic Name Dose Route Start Last Admin Trade Name Freq PRN Reason Stop Dose Admin Acetaminophen 650 mg 04/16/19 09:13 04/16/19 13:06 Tylenol - PO 650 mg Q4H PRN Administration PAIN LEVEL 4 - 6 Famotidine 20 mg 04/16/19 10:00 04/17/19 09:52 Pepcid - PO Not Given DAILY KRYSTA Labetalol HCl 100 mg 04/15/19 22:00 04/17/19 09:51 Normodyne - PO 100 mg BID KRYSTA Administration Nifedipine 90 mg 04/16/19 10:00 04/17/19 09:52 Procardia Xl - PO 90 mg DAILY KRYSTA Administration ASSESSMENT/PLAN: Problem List - Problems (1) History of renal failure Assessment/Plan: s.p 8 sessions of dialysis via right permacath. renal function stable renal consulted for further recommendations renal/bladder u/s negative for acute process has protein in urine which will need outpatient follow up. consult placed. Code(s): Z87.448 - PERSONAL HISTORY OF OTHER DISEASES OF URINARY SYSTEM (2) Hypertension Assessment/Plan: stable. continue home medications. Code(s): I10 - ESSENTIAL (PRIMARY) HYPERTENSION (3) Muscle weakness Assessment/Plan: unclear etiology of muscle weakness, was seen by a director of testing on last hospital admission, but not muscle biopsy performed. Seen by rheumatology, recommendations reviewed and appreciated. Patient will need outpatient follow up and an EMG is recommended. denies any falls ambulates with cane. Code(s): M62.81 - MUSCLE WEAKNESS (GENERALIZED) (4) Rhabdomyolysis Assessment/Plan: presents with cpk 625. had recent admission for rhabdomyolysis that required dialysis. awaiting repeat cpk before d/c. on IVF 125/cc monitor daily cpk intake and output Code(s): M62.82 - RHABDOMYOLYSIS (5) Unsteady gait Assessment/Plan: negative head ct seen by neuro and EMG recommended, can be done as an outpatient MRI of brain, cervical, lumbar and thoracic canceled by neurology Code(s): R26.81 - UNSTEADINESS ON FEET Visit type - Emergency Visit Emergency Visit: Yes ED Registration Date: 04/15/19 Care time: The patient presented to the Emergency Department on the above date and was hospitalized for further evaluation of their emergent condition. - New Patient This patient is new to me today: No - Critical Care Critical Care patient: No - Discharge Referral Referred to [facility] Med P.C.: No
--- NOTE | 2019-04-17 19:57 | DS ---
Physical Exam: SUBJECTIVE: Patient seen and examined OBJECTIVE: The patient is a 29 year old male with a past medical history significant for HTN (on three blood pressure medications), rhabdomylysis and renal failure requiring dialysis. Patient presents to the ED on 04/15/19 with tingling to both hands, numbness, generalized body aches accompanied with generalized weakness with cramping and aching to both arms and legs. He also reports difficulty ambulating secondary to pain in feet and joints. He was reported to have an elevated CPK levels and was advised to go to the ED by this PCP. Patient CPK levels improved with IVF and he is stable for discharge home with follow up with renal specialist. Patient agrees to follow up on discharge for an EMG and with nephrology. Vital Signs Period Temp Pulse Resp BP Sys/Schuster Pulse Ox Last 24 Hr 98.0 F-98.8 F 66-80 18-18 134-144/71-85 100-100 PHYSICAL EXAM GENERAL: Awake, alert, and fully oriented, in no acute distress. HEAD: Normal with no signs of trauma. EYES: Pupils equal, round and reactive to light, extraocular movements intact, sclera anicteric, conjunctiva clear. No lid lag. EARS, NOSE, THROAT: Ears normal, nares patent, oropharynx clear without exudates. Moist mucous membranes. NECK: Normal range of motion, supple without lymphadenopathy, JVD, or masses. LUNGS: Breath sounds equal, clear to auscultation bilaterally. No wheezes, and no crackles. No accessory muscle use. HEART: Regular rate and rhythm, normal S1 and S2 without murmur, rub or gallop. ABDOMEN: Soft, nontender, not distended, normoactive bowel sounds, no guarding, no rebound, no masses. No hepatomegaly or splenomegaly. MUSCULOSKELETAL: muscle weakness of upper and lower arms, joint pain, difficulty ambulating secondary to ankle/knee pain. UPPER EXTREMITIES: No peripheral edema. LOWER EXTREMITIES: No peripheral edema. NEUROLOGICAL: Normal speech. ambulates with cane, unable to bear his weight fully on pads of feet. unable to walk on his toes, negative facial droop, patient is alert and oriented x 4. upper extremities strength 4/5, lower ext strength 4/5 LABS Laboratory Results - last 24 hr 04/16/19 04/17/19 04/17/19 10:10 13:36 13:40 WBC 5.1 RBC 4.18 Hgb 12.0 Hct 36.6 MCV 87.7 MCH 28.8 MCHC 32.9 RDW 12.9 Plt Count 249 MPV 9.0 Absolute Neuts (auto) 3.0 Neutrophils % 58.0 Lymphocytes % 28.7 Monocytes % 10.8 H Eosinophils % 1.8 Basophils % 0.7 Nucleated RBC % 0 Sodium 139 Potassium 4.2 Chloride 104 Carbon Dioxide 27 Anion Gap 8 BUN 5.2 L Creatinine 0.8 Est GFR (CKD-EPI)AfAm 140.90 Est GFR (CKD-EPI)NonAf 121.57 Random Glucose 104 Calcium 9.8 Magnesium 1.6 L Total Bilirubin 0.3 AST 16 ALT 29 Alkaline Phosphatase 59 Creatine Kinase Total Protein 7.3 Albumin 3.8 Ur Random Creatinine U Random Total Protein Urine Creatinine Protein/Creatinin Ratio JASWINDER Screen Negative 04/17/19 04/17/19 04/17/19 14:30 14:30 14:30 WBC RBC Hgb Hct MCV MCH MCHC RDW Plt Count MPV Absolute Neuts (auto) Neutrophils % Lymphocytes % Monocytes % Eosinophils % Basophils % Nucleated RBC % Sodium Potassium Chloride Carbon Dioxide Anion Gap BUN Creatinine Est GFR (CKD-EPI)AfAm Est GFR (CKD-EPI)NonAf Random Glucose Calcium Magnesium Total Bilirubin AST ALT Alkaline Phosphatase Creatine Kinase Total Protein Albumin Ur Random Creatinine 142.0 U Random Total Protein 24.0 H 25.3 H Urine Creatinine 140.0 Protein/Creatinin Ratio 0.2 JASWINDER Screen 04/17/19 18:45 WBC RBC Hgb Hct MCV MCH MCHC RDW Plt Count MPV Absolute Neuts (auto) Neutrophils % Lymphocytes % Monocytes % Eosinophils % Basophils % Nucleated RBC % Sodium Potassium Chloride Carbon Dioxide Anion Gap BUN Creatinine Est GFR (CKD-EPI)AfAm Est GFR (CKD-EPI)NonAf Random Glucose Calcium Magnesium Total Bilirubin AST ALT Alkaline Phosphatase Creatine Kinase 469 H Total Protein Albumin Ur Random Creatinine U Random Total Protein Urine Creatinine Protein/Creatinin Ratio JASWINDER Screen HOSPITAL COURSE: Date of Admission:04/15/19 Date of Discharge: 04/17/19 Minutes to complete discharge: 45 Discharge Summary Problems reviewed: Yes Reason For Visit: WEAKNESS Current Active Problems History of renal failure (Acute) Hypertension (Acute) Muscle weakness (Acute) Rhabdomyolysis (Acute) Unsteady gait (Acute) Condition: Improved - Instructions Diet, Activity, Other Instructions: Mr Lowry: You were admitted to [facility] and were found to have an elevated CPK. During your stay you were evaluated by a power system electrical engineer, urologist and local [place] truck driver. We will be sending you home with the following recommendations. Elevated CPK We have treated you with fluids and have repeated your CPK levels which has decreased. You will need to have them repeated with your primary care doctor within one week of discharge to assure that they remain stable and within normal limits. Muscle weakness: You have been referred to see Dr. Reyes for an EMG What is an EMG? An EMG is a test that measures muscle response or electrical activity in response to a nerve stimulation of the muscle. Please call his office for an appointment Urine Protein You were found to have protein in your urine and will need to be have a follow up appointment with Dr. Mclaughlin (renal specialist). Please follow up with his office. his phone number is enclosed. Elevated cholesterol Your cholesterol levels were elevated, the best first step is weight loss and diet control (low cholesterol). Please have your levels repeated with your primary care doctor.. Thank you for allowing us to care for you. Referrals: Jethro Lujan MD [Staff Physician] - Randy Reyes MD [Staff Physician] - Kristin Mclaughlin MD [Staff Physician] - 1 Week Disposition: HOME - Home Medications Comprehensive Discharge Medication List: Ambulatory Orders Acetaminophen [Acetaminophen ER] 650 mg PO DAILY 04/15/19 Famotidine 20 mg PO DAILY 04/15/19 Hydrocodone/Acetaminophen [Hydrocodone-Acetamin 10-325 mg] 1 each PO Q6H 04/15/19 Magnesium Oxide 400 mg PO DAILY 04/15/19 Nifedipine [Nifedipine ER] 90 mg PO DAILY 04/15/19 Potassium Chloride [Klor-Con M20] 20 meq PO DAILY 04/15/19 Vitamin B Complex 1 each PO DAILY 04/15/19 Labetalol HCl [Normodyne -] 100 mg PO BID tablet 04/17/19 Problem List - Problems (1) History of renal failure Assessment/Plan: s/p 8 sessions of dialysis via right permacath on 01/2019 from complication from the flu. renal function stable renal consulted for further recommendations renal/bladder u/s negative for acute process has protein in urine which will need outpatient follow up. patient agrees to outpatient follow up Code(s): Z87.448 - PERSONAL HISTORY OF OTHER DISEASES OF URINARY SYSTEM (2) Hypertension Assessment/Plan: stable. continue home medications. Code(s): I10 - ESSENTIAL (PRIMARY) HYPERTENSION (3) Muscle weakness Assessment/Plan: unclear etiology of muscle weakness, was seen by a local [place] truck driver on last hospital admission, but not muscle biopsy performed. Seen by rheumatology, recommendations reviewed and appreciated. Patient will need outpatient follow up and an EMG is recommended. denies any falls ambulates with cane. Code(s): M62.81 - MUSCLE WEAKNESS (GENERALIZED) (4) Rhabdomyolysis Assessment/Plan: presents with cpk 625 which improved with IVF Code(s): M62.82 - RHABDOMYOLYSIS (5) Unsteady gait Assessment/Plan: negative head ct seen by neuro and EMG recommended, can be done as an outpatient MRI of brain, cervical, lumbar and thoracic canceled by neurology Code(s): R26.81 - UNSTEADINESS ON FEET This patient is new to me today: Yes Date on this admission: 04/29/19 Emergency Visit: No Critical Care patient: No - Discharge Referral Referred to [facility] No
[2019-04-18 01:45] VITALS: BP 145/95; PULSE 70; TEMP 98.3
== END 2019-04-17 22:00 | disposition home or self-care (01) | DRG 351 ==
LOC: SUPCPDRO 15:08 → JER 15:08 → JERBED 17:50 → J8W 21:49
PROVIDERS: ADMIT Internal Medicine; ATTEND Nurse Practitioner Family
DX: M62.82 Rhabdomyolysis (principal); M62.81 Muscle weakness (generalized); I10 Essential (primary) hypertension; R26.81 Unsteadiness on feet; E66.9 Obesity, unspecified; Z68.37 Body mass index [BMI] 37.0-37.9, adult; N18.9 Chronic kidney disease, unspecified
CPT/HCPCS: 36415; 76775-TC; 76856-TC; 80048; 80053; 80061; 81003; 82085; 82550; 82553; 82565; 82570; 83036; 83721; 83735; 84100; 84156; 84443; 84484; 85025; 85027; 85610; 86038; 87086; 93005; 93010; 99285-25; J7030

== ENCOUNTER 2020-08-28 19:15 | Emergency (ER) | payer OTHER ==
[2020-08-28 19:33] VITALS: BP 136/74; PULSE 79; TEMP 98.2; BMI 38.0
[2020-08-28] MEDS ORDERED: ASPIRIN 81 MG CHEWABLE TABLETS PO ONE (20:01)
[2020-08-28] MEDS ORDERED: ASPIRIN 81 MG CHEWABLE TABLETS ONE (20:05)
[2020-08-28 20:44] LABS: EOS % 2.7 % (0-4.5); HEMOGLOBIN 13.9 GM/dL (11.7-16.9); LYMPH % 34.6 % (8-40); MCH 28.5 pg (25.7-33.7); MCHC 33.1 g/dl (32.0-35.9); MEAN CELL VOLUME 85.9 fl (80-96); MEAN PLT VOLUME 9.2 fl (7.5-11.1); MONO % 9.4 % (3.8-10.2); NEUT % 52.3 % (42.8-82.8); PLATELET COUNT 186 10^3/uL (134-434); RBC 4.89 M/mm3 (4.00-5.60); RDW 12.5 % (11.9-15.9); WHITE BLOOD COUNT 6.1 K/mm3 (4.0-10.0)
[2020-08-28 21:04] LABS: CHLORIDE 108 mmol/L (98-107); SODIUM 142 mmol/L (136-145)
[2020-08-28 21:07] LABS: CALCIUM 8.5 mg/dL (8.5-10.1)
[2020-08-28 21:08] LABS: ALBUMIN 3.9 g/dl (3.4-5.0); ANION GAP 5 MMOL/L (8-16); BLOOD UREA NITROGEN 12.4 mg/dL (7-18); CO2 29 mmol/L (21-32); GLUCOSE,RANDOM 87 mg/dL (74-106); MAGNESIUM 1.9 mg/dL (1.8-2.4)
[2020-08-28 21:11] LABS: CREATININE 0.9 mg/dL (0.55-1.3); SGOT/AST 18 U/L (15-37); SGPT/ALT 34 U/L (13-61)
[2020-08-28 21:12] LABS: BILIRUBIN,TOTAL 0.4 mg/dL (0.2-1); TOT PROT 7.5 g/dl (6.4-8.2)
[2020-08-28 21:13] LABS: ALK PHOS 59 U/L (45-117)
== END 2020-08-28 21:35 | disposition home or self-care (01) ==
LOC: JER 19:15
DX: R07.9 Chest pain, unspecified (principal)
CPT/HCPCS: 36415; 71046-TC-FY; 80053; 82550; 82553; 83735; 84484; 85025; 93005; 93010; 99285-25

== ENCOUNTER 2021-01-13 02:05 | Emergency (ER) | payer OTHER ==
[2021-01-13 02:59] VITALS: BP 132/75; PULSE 64; TEMP 97.8; BMI 42.5
[2021-01-13] MEDS ORDERED: LIDOCAINE HCL 2% (50ML VIAL) SQ ONE (03:26)
[2021-01-13] MEDS ORDERED: LIDOCAINE HCL 2% (20ML MULTI-DOSE VIAL) ONE (03:43)
== END 2021-01-13 05:22 | disposition home or self-care (01) ==
LOC: JER 02:05
PROC: 0W963ZZ Drainage of Neck, Percutaneous Approach (ICD-10-PCS; principal; 2021-01-13)
DX: L02.11 Cutaneous abscess of neck (principal)
CPT/HCPCS: 99283-25

== ENCOUNTER 2021-08-15 05:32 | Emergency (ER) | payer OTHER ==
[2021-08-15 05:57] VITALS: BP 141/82; PULSE 66; TEMP 97.4; BMI 37.2
[2021-08-15] MEDS ORDERED: LIDOCAINE HCL 2% JELLY (30 ML/TUBE) TP ONE (08:36)
[2021-08-15] MEDS ORDERED: LIDOCAINE HCL 2% JELLY (5 ML/TUBE) ONE (08:38)
== END 2021-08-15 09:31 | disposition home or self-care (01) ==
LOC: JER 05:32
PROC: 0H97XZZ Drainage of Abdomen Skin, External Approach (ICD-10-PCS; principal; 2021-08-15)
DX: L02.211 Cutaneous abscess of abdominal wall (principal)
CPT/HCPCS: 87070; 87205; 99283-25

== ENCOUNTER 2023-08-15 10:35 | Emergency (ER) | payer OTHER ==
[2023-08-15 10:43] VITALS: BP 148/68; PULSE 88; RESP 18; TEMP 98.3; BMI 39.2
[2023-08-15] MEDS ORDERED: IBUPROFEN 600 MG TABLET (FP) PO ONE (11:14)
[2023-08-15] MEDS: IBUPROFEN 600 MG TABLET (FP) PO ONE (11:15)
== END 2023-08-15 11:36 | disposition home or self-care (01) ==
LOC: JER 10:35 → JERFT 10:35
DX: M79.671 Pain in right foot (principal); M79.672 Pain in left foot
CPT/HCPCS: 99283-25

== ENCOUNTER 2023-08-18 23:35 | Emergency (ER) | payer OTHER ==
[2023-08-18 23:46] VITALS: BP 133/77; PULSE 75; RESP 18; TEMP 98; BMI 39.4
== END 2023-08-19 02:28 | disposition home or self-care (01) ==
LOC: JER 23:35
PROC: 0H91XZZ Drainage of Face Skin, External Approach (ICD-10-PCS; principal; 2023-08-18)
DX: L02.01 Cutaneous abscess of face (principal)
CPT/HCPCS: 99282-25

== ENCOUNTER 2023-09-05 22:01 | Emergency (ER) | payer OTHER ==
[2023-09-05 22:06] VITALS: BP 172/92; PULSE 82; RESP 18; TEMP 97.7; BMI 38.0
[2023-09-06] MEDS: BACITRACIN/POLYMYXIN B SULFATE 15 GM TUBE TP STA (00:03)
== END 2023-09-06 00:13 | disposition home or self-care (01) ==
LOC: JER 22:01
DX: L02.02 Furuncle of face (principal)
CPT/HCPCS: 99283-25